=== PATIENT | female | born 1995 | race African-American/Black ===

== ENCOUNTER 2021-08-23 16:33 | Emergency (ER) | payer OTHER ==
[2021-08-24 20:19] LABS: SARS-CoV-2 PCR by NAA DETECTED (NotDetected)
== END 2021-08-23 17:36 | disposition home or self-care (01) ==
LOC: CSHERS 16:33
DX: U07.1 COVID-19 (principal); F17.210 Nicotine dependence, cigarettes, uncomplicated
CPT/HCPCS: 99283; U0003; U0005

== ENCOUNTER 2024-06-20 07:28 | Emergency (ER) | payer OTHER ==
[2024-06-20] MEDS ORDERED: HYDROcodone/Acetaminophen 5/325 mg Tablet ONE (07:50)
[2024-06-20] MEDS ORDERED: Lidocaine Viscous Sol 2% 15 ml UD Cup ONE (07:50)
== END 2024-06-20 08:01 | disposition home or self-care (01) ==
LOC: CSHERS 07:28
DX: O99.611 Diseases of the digestive system complicating pregnancy, first trimester (principal); K02.9 Dental caries, unspecified; Z3A.13 13 weeks gestation of pregnancy
CPT/HCPCS: 99282